=== PATIENT | male | born 1935 | race Caucasian/White ===

== ENCOUNTER 2018-02-16 15:46 | Inpatient (IN) ==
[2018-02-16] MEDS ORDERED: Ipratropium/Albuterol Neb 3 ML IH STA (15:58)
--- NOTE | 2018-02-16 15:59 | Emergency Department Note ---
Disposition Clinical Impression: Pancreatitis Qualifiers: Chronicity: acute Pancreatitis type: biliary Acute pancreatitis complication: unspecified Qualified Code(s): K85.10 - Biliary acute pancreatitis without necrosis or infection Disposition: Admitted As Inpatient Condition: Fair Time of Disposition: 18:00 (Dr Vang) Abdominal Pain HPI - General Chief Complaint: ED Abdominal Pain Stated Complaint: abdominal pain, low 02 sat Time Seen by Provider: 02/16/18 15:52 Source: patient Mode of arrival: EMS Limitations: no limitations Nursing Notes Reviewed: Yes Vital Signs Reviewed: Yes - History of Present Illness Pt Subjective Complaint: abdominal pain Onset (ago): unknown Consistency: constant, Worsening Location: epigastric Pain Severity: moderate Quality: cramping, fullness Radiation: none Migration to: no migration Improves with: nothing Worsens with: nothing Context: history of similar episodes (According to family similar to pancreatitis episodes approximately 2 years ago.) Associated symptoms: Reports: nausea. Denies: vomiting, diarrhea, fever, chills , constipation, dysuria, hematemesis, hematochezia, melena, hematuria, anorexia Treatments prior to arrival: none - Related Data Home Medications Medication Instructions Recorded Confirmed Albuterol Sulfate [Proair Hfa] 2 puff IH Q4H PRN 07/03/16 02/16/18 Carbidopa/Levodopa 25/100 [Sinemet 2 each PO QID 07/03/16 02/16/18 25/100] Pramipexole [Mirapex] 0.5 mg PO TID 07/03/16 02/16/18 Tiotropium [Spiriva] 18 mcg IH QAM 07/03/16 02/16/18 Omeprazole [PriLOSEC] 20 mg PO DAILY 08/22/16 02/16/18 Albuterol Neb [AccuNeb] 1.25 mg IH Q4-6H PRN 02/16/18 02/16/18 Fluticasone/Vilanterol [Breo 1 each IH DAILY 02/16/18 02/16/18 Ellipta 100-25 Mcg INH] Furosemide [Lasix] 40 mg PO BID 02/16/18 02/16/18 Lisinopril 20 mg PO DAILY 02/16/18 02/16/18 Naproxen [Naprosyn] 500 mg PO BID 02/16/18 02/16/18 Allergies Allergy/AdvReac Type Severity Reaction Status Date / Time No Known Allergies Allergy Verified 02/16/18 15:48 All systems ED: reviewed and negative except as stated. Abdominal Pain PMH - Past Medical History Medical history: Reports: arthritis, cancer, COPD, GERD, hypertension, osteoporosis, other Male Surgical History: Reports: other Psychiatric history: Reports: no psych history - Social History Smoking status: Current every day smoker Alcohol use: Reports: none Drug use: Reports: none Physical Exam - General Limitations: no limitations General appearance: alert, in distress - Head Head exam: atraumatic, normocephalic, normal inspection - Eye Eye exam: Present: normal appearance, PERRL, EOMI - ENT ENT exam: normal exam, normal oropharynx, mucous membranes moist - Neck Neck exam: Present: normal inspection, full ROM, trachea midline - Respiratory Respiratory exam: Present: normal lung sounds bilaterally - Expanded Respiratory Exam Location: decreased breath sounds: Upper, Lower - Cardiovascular Cardiovascular exam: Present: regular rate, normal rhythm, normal heart sounds - Abdominal Exam Abdominal exam: Present: soft, tenderness, distention, normal bowel sounds. Absent: guarding, rebound, rigidity, mass, pulsatile mass Abdominal tenderness: Present: epigastrium - Extremities Exam Extremities exam: Present: normal inspection, full ROM, normal capillary refill , pedal edema (3+). Absent: tenderness, calf tenderness - Neurological Exam Neurological exam: Present: alert, oriented X3 - Skin Skin exam: Present: warm, dry, intact, normal color Course Vital Signs Temperature 97.9 F 02/16/18 15:49 Pulse Rate 70 02/16/18 15:49 Respiratory Rate 24 02/16/18 15:49 Blood Pressure 116/59 02/16/18 15:49 O2 Sat by Pulse Oximetry 95 02/16/18 15:49 Temperature 98.3 F 02/17/18 03:11 Pulse Rate 80 02/17/18 03:11 Respiratory Rate 18 02/17/18 03:11 Blood Pressure 93/47 02/17/18 03:11 O2 Sat by Pulse Oximetry 93 02/17/18 03:11 Oxygen Delivery Oxygen Delivery Oximizer Abdominal Pain - MDM Narrative Medical decision making narrative: Negative acute abdomen. Positive for acute pancreatitis. Patient was given Nubain for his pain with tremendous improvement. He appeared slightly somnolent and desaturated in the upper 80s. The nasal cannula oxygen was replaced with an oxygen mask and he was able to maintain his sats above 90. he was stable for transfer to the [facility]. - Differential Diagnosis Differential Diagnosis: Likely: abdominal pain non-specific, AAA, diverticulitis , gastroenteritis - Medical Records Medical records reviewed: Yes I reviewed the patient's medical records. - Lab Data Lab results reviewed: Yes I reviewed the patient's lab results. Result diagrams: 02/16/18 16:34 02/16/18 16:34 Lab Results 02/16/18 02/16/18 02/16/18 Range/Units 16:34 16:34 16:34 WBC 11.3 H (4.3-11.1) K/mcL RBC 3.69 L (4.19-5.50) M/mcL Hgb 9.7 L (12.9-16.9) g/dL Hct 31.7 L (37.5-50.1) % MCV 85.9 (83.0-100.0) fL MCH 26.3 L (28.0-33.3) pg MCHC 30.6 L (31.6-35.5) g/dL RDW 17.5 H (11.5-14.5) % Plt Count 513 H (140-400) K/mcL MPV 8.6 L (9.4-12.4) fL Immature Gran % 0.4 (0-4) % Seg Neutrophils % 85.1 % Lymphocytes % 5.8 % Monocytes % 7.6 % Eosinophils % 0.9 % Basophils % 0.2 % Neutrophils # 9.6 H (1.6-8.9) K/mcL Lymphocytes # 0.7 (0.6-4.6) K/mcL Monocytes # 0.9 (0.0-1.3) K/mcL Eosinophils # 0.1 (0.0-0.6) K/mcL Basophils # 0.0 (0.0-0.2) K/mcL Sodium 138 (136-145) mEq/L Potassium 4.9 (3.5-5.1) mEq/L Chloride 101 (98-107) mEq/L Carbon Dioxide 29 (23-29) mEq/L BUN 63 H (8-23) mg/dL Creatinine 1.91 H (0.70-1.30) mg/dL Est GFR ( Amer) 41 L (> 60) Est GFR (Non-Af Amer) 34 L (> 60) BUN/Creatinine Ratio 33 H (6-26) Glucose 149 H (70-105) mg/dL Calculated Osmolality 307 H (280-300) Lactic Acid (0.5-2.2) mmol/L Calcium 8.9 (8.6-10.3) mg/dL Total Bilirubin 0.8 (0.3-1.0) mg/dL Direct Bilirubin 0.6 H (0.0-0.2) mg/dL Indirect Bilirubin 0.2 (0.0-1.2) mg/dL AST 54 H (13-39) Units/L ALT 8 (7-52) Units/L Alkaline Phosphatase 164 H (34-104) Units/L B-Natriuretic Peptide 70 (Less than 100) pg/mL Serum Total Protein 6.8 (6.4-8.9) g/dL Albumin 3.7 (3.5-5.7) g/dL Globulin 3.1 (2.4-3.5) g/dL Albumin/Globulin Ratio 1.2 (1.1-2.2) Lipase > 1800 H (11-82) Units/L /30/18 Range/Units 16:34 WBC (4.3-11.1) K/mcL RBC (4.19-5.50) M/mcL Hgb (12.9-16.9) g/dL Hct (37.5-50.1) % MCV (83.0-100.0) fL MCH (28.0-33.3) pg MCHC (31.6-35.5) g/dL RDW (11.5-14.5) % Plt Count (140-400) K/mcL MPV (9.4-12.4) fL Immature Gran % (0-4) % Seg Neutrophils % % Lymphocytes % % Monocytes % % Eosinophils % % Basophils % % Neutrophils # (1.6-8.9) K/mcL Lymphocytes # (0.6-4.6) K/mcL Monocytes # (0.0-1.3) K/mcL Eosinophils # (0.0-0.6) K/mcL Basophils # (0.0-0.2) K/mcL Sodium (136-145) mEq/L Potassium (3.5-5.1) mEq/L Chloride (98-107) mEq/L Carbon Dioxide (23-29) mEq/L BUN (8-23) mg/dL Creatinine (0.70-1.30) mg/dL Est GFR ( Amer) (> 60) Est GFR (Non-Af Amer) (> 60) BUN/Creatinine Ratio (6-26) Glucose (70-105) mg/dL Calculated Osmolality (280-300) Lactic Acid 1.4 (0.5-2.2) mmol/L Calcium (8.6-10.3) mg/dL Total Bilirubin (0.3-1.0) mg/dL Direct Bilirubin (0.0-0.2) mg/dL Indirect Bilirubin (0.0-1.2) mg/dL AST (13-39) Units/L ALT (7-52) Units/L Alkaline Phosphatase (34-104) Units/L B-Natriuretic Peptide (Less than 100) pg/mL Serum Total Protein (6.4-8.9) g/dL Albumin (3.5-5.7) g/dL Globulin (2.4-3.5) g/dL Albumin/Globulin Ratio (1.1-2.2) Lipase (11-82) Units/L - Radiology Data Radiology results reviewed: Yes I reviewed the patient's radiology results. Abdomen/Pelvis CT 02/16/18 17:19 IMPRESSION: Limited noncontrast study as above. There is questionable increased density within the peripancreatic mesenteric fat, finding which may be at least partially due to motion artifact. Correlation for the possibility of pancreatitis is recommended. Enlarged prostate gland. D/ / Areli Ceja Cha, MD / Areli Ceja Cha, MD Interpreting Provider: Areli Ceja Cha, MD
[2018-02-16 16:43] LABS: Basophils % 0.2 %; Eosinophils # 0.1 K/mcL (0.0-0.6); Eosinophils % 0.9 %; Hematocrit 31.7 % (37.5-50.1); Hemoglobin 9.7 g/dL (12.9-16.9); Immature Granulocytes % 0.4 % (0-4); Lymphocytes # 0.7 K/mcL (0.6-4.6); Lymphocytes % 5.8 %; Mean Corpuscular HGB Conc 30.6 g/dL (31.6-35.5); Mean Corpuscular Hemoglobin 26.3 pg (28.0-33.3); Mean Corpuscular Volume 85.9 fL (83.0-100.0); Mean Platelet Volume 8.6 fL (9.4-12.4); Monocytes # 0.9 K/mcL (0.0-1.3); Monocytes % 7.6 %; Neutrophils # 9.6 K/mcL (1.6-8.9); Platelet Count 513 K/mcL (140-400); Red Blood Count 3.69 M/mcL (4.19-5.50); Red Cell Distribution Width 17.5 % (11.5-14.5); Segmented Neutrophils % 85.1 %
[2018-02-16] MEDS ORDERED: Ondansetron 4 MG/2 ML VIAL IVP ONE (17:09)
[2018-02-16 17:17] LABS: Alanine Aminotransferase 8 Units/L (7-52); Albumin 3.7 g/dL (3.5-5.7); Albumin/Globulin Ratio 1.2 (1.1-2.2); Alkaline Phosphatase 164 Units/L (34-104); Aspartate Amino Transferase 54 Units/L (13-39); BUN/Creatinine Ratio 33 (6-26); Bilirubin,Direct 0.6 mg/dL (0.0-0.2); Bilirubin,Indirect 0.2 mg/dL (0.0-1.2); Bilirubin,Total 0.8 mg/dL (0.3-1.0); Blood Urea Nitrogen 63 mg/dL (8-23); Calcium 8.9 mg/dL (8.6-10.3); Carbon Dioxide 29 mEq/L (23-29); Chloride 101 mEq/L (98-107); Globulin 3.1 g/dL (2.4-3.5); Glucose 149 mg/dL (70-105); Lipase > 1800 Units/L (11-82); Osmolality,Calculated 307 (280-300); Potassium 4.9 mEq/L (3.5-5.1); Sodium 138 mEq/L (136-145); Total Protein 6.8 g/dL (6.4-8.9); eGFR For African Americans 41 (> 60); eGFR For Non-African Americans 34 (> 60)
[2018-02-16] MEDS ORDERED: *HR* Nalbuphine 10 MG/ML AMPUL IVP STA (17:19)
[2018-02-16] MEDS ORDERED: 0.9 % Sodium Chloride 500 ML IVC ONE (18:10)
[2018-02-16] MEDS ORDERED: Metoclopramide 10 MG/2 ML VIAL IVP PRN (20:01)
[2018-02-16] MEDS ORDERED: Naloxone 0.4 MG/ML INJ IVP PRN (20:01)
[2018-02-16] MEDS ORDERED: Albuterol Neb 1.25 MG/3 ML VIAL IH PRN (20:01)
[2018-02-16] MEDS ORDERED: *HR* Nalbuphine 10 MG/ML AMPUL IVP PRN (20:01)
[2018-02-16] MEDS ORDERED: *HR* OxyCODONE Oral Soln 5 MG/5 ML UD.LIQ PO PRN (20:01)
[2018-02-16] MEDS: 0.9 % Sodium Chloride 1,000 ML IVC SCH (21:08)
[2018-02-16] MEDS: Furosemide 40 MG TABLET PO SCH (23:19)
[2018-02-16] MEDS: Carbidopa/Levodopa 25/100 TABLET PO SCH ×2 (23:19→23:51)
[2018-02-17 07:39] LABS: Hematocrit 28.6 % (37.5-50.1); Hemoglobin 8.8 g/dL (12.9-16.9); Mean Corpuscular HGB Conc 30.8 g/dL (31.6-35.5); Mean Corpuscular Hemoglobin 26.3 pg (28.0-33.3); Mean Corpuscular Volume 85.4 fL (83.0-100.0); Mean Platelet Volume 8.4 fL (9.4-12.4); Platelet Count 426 K/mcL (140-400); Red Blood Count 3.35 M/mcL (4.19-5.50); Red Cell Distribution Width 17.6 % (11.5-14.5)
[2018-02-17 08:16] LABS: Calcium 8.4 mg/dL (8.6-10.3); Chol/HDL Ratio 2.3 (0-4.9); Potassium 5.3 mEq/L (3.5-5.1)
[2018-02-17] MEDS: Tiotropium 18 MCG inhalation IH SCH (09:28)
[2018-02-17] MEDS: Lisinopril 20 MG TABLET PO SCH (09:34)
[2018-02-17] MEDS: Furosemide 40 MG TABLET PO SCH (09:34)
[2018-02-17] MEDS: Carbidopa/Levodopa 25/100 TABLET PO SCH ×4 (09:51→19:55)
[2018-02-17] MEDS: 0.9 % Sodium Chloride 1,000 ML IVC SCH ×2 (09:51→14:34)
[2018-02-17] MEDS ORDERED: 0.9 % Sodium Chloride 500 ML IVC ONE (10:04)
[2018-02-17] MEDS: (Breo Ellipta 100-25 Mcg Inh) IH SCH (10:36)
[2018-02-17 13:35] LABS: Basophils % 0.2 %; Eosinophils % 0.1 %; Hematocrit 28.8 % (37.5-50.1); Hemoglobin 8.9 g/dL (12.9-16.9); Immature Granulocytes % 0.5 % (0-4); Lymphocytes # 0.8 K/mcL (0.6-4.6); Lymphocytes % 4.4 %; Mean Corpuscular HGB Conc 30.9 g/dL (31.6-35.5); Mean Corpuscular Hemoglobin 26.6 pg (28.0-33.3); Mean Platelet Volume 8.9 fL (9.4-12.4); Monocytes % 5.6 %; Neutrophils # 15.5 K/mcL (1.6-8.9); Platelet Count 459 K/mcL (140-400); Red Blood Count 3.35 M/mcL (4.19-5.50); Red Cell Distribution Width 17.8 % (11.5-14.5); Segmented Neutrophils % 89.2 %
--- NOTE | 2018-02-17 14:51 | Internal Med History&Physical ---
Date of Encounter: 02/17/18 Time of Encounter: 14:40 Assessment and Plan (1) Pancreatitis Current visit: Yes Status: Acute Lipase extremely high started coming down with IV fluids and nothing by mouth. We will continue IV fluids, will follow-up lipase Qualifiers: Chronicity: acute Pancreatitis type: biliary Acute pancreatitis complication: unspecified Qualified Code(s): K85.10 - Biliary acute pancreatitis without necrosis or infection (2) Leukocytosis Current visit: Yes Status: Acute Concerned that there is underlying pneumonia going on he at least, concerned something more seriously is going on in his abdominal area and notes not tender anymore. We will get blood cultures and empirically start him on Flagyl and Cipro that should cover both the pneumonia and ascending cholangitis I discussed this with the pharmacist. Imipenum is not available and we are catching early Qualifiers: Leukocytosis type: bandemia Qualified Code(s): D72.825 - Bandemia (3) Hypotension Current visit: Yes Status: Acute Probably the Lasix Component is using for his congestive heart failure. Thought find a balance between taking off too much fluids and taking off enough so he can breathe, as his a systolic blood pressure stays consistently above 80 we will decrease IV fluids to 80 mL an hour and monitor Qualifiers: Hypotension type: unspecified hypotension type Qualified Code(s): I95.9 - Hypotension, unspecified (4) Acute kidney injury Current visit: Yes Status: Acute IV fluids and stop the Lasix (5) Azotemia Current visit: Yes Status: Acute IV fluids, follow-up labs (6) Thrombocytosis Current visit: Yes Status: Acute We will observe follow-up a CBC (7) Severe anemia Current visit: Yes Status: Acute Follow-up CBCs probably has chronic disease component may be chronic kidney disease. It did drop a little with hydration. (8) Congestive heart failure Current visit: Yes Status: Acute Patient's family did not know what kind of congestive heart failure had. Had to stop the Lasix because she was severely dehydrated. Will follow-up BNP and chest x-ray tomorrow Qualifiers: Heart failure type: unspecified Heart failure chronicity: unspecified Qualified Code(s): I50.9 - Heart failure, unspecified (9) Other injury of muscle(s) and tendon(s) of the rotator cuff of right shoulder, initial encounter Current visit: Yes Status: Acute Injuries right rotator cuff muscles he will continue rehabilitation when he gets discharged (10) Cholelithiasis Current visit: Yes Status: Acute He has a history of stones and prior passed a stone that at least temporarily caused backflush in the pancreas Qualifiers: Cholelithiasis location: gallbladder Cholecystitis presence: without cholecystitis Biliary obstruction: without biliary obstruction Qualified Code(s): K80.20 - Calculus of gallbladder without cholecystitis without obstruction (11) Bronchitis Current visit: Yes Status: Acute Once he started getting hydrated he started coughing up phlegm, obtain culture Internal Medicine - H&P: HPI Chief complaint: Abdominal pain Admitted From: Home Plans for Post Hospital Care: Home History of present illness: Mr. Horn is a 82 year old male presents to emergency room with lower abdominal pain that started yesterday. He is a little confused on his history but his and son with her to help. He apparently been worsening shortness of breath over last few days he had some chills says he had a fever he was weak and fatigued and then complaining of headache and dizziness. Currently he has a history of congestive heart failure he is initially put on Lasix 40 mg daily still had swelling in his legs slowly increased it to 40 mg twice a day. He is worn compression stockings in the past. Explained a fine balance between taking enough water SO he can breathe but not taking too much off where he has kidney problems and dehydration. His CT scan showed increased density in the leonor-pancreatic fat consistent with pancreatitis and large prostate. Alkaline phosphatase high at 164 AST height 54 lactic acid normal at 1.4 lipase greater than 1800. White count 11.3 hemoglobin 9.76 platelets 513 neutrophils 9.6 which time, B and 63, creatinine 1.91, and certainly his questions. Addressed her concerns. He denied having any chest pain nausea. Vomiting. Diarrhea pump. Bleeding. Questions answered concerns addressed. Discussed with his nurse because he was hypotensive him a couple boluses of fluid, the patient mentioned that he did not have congestive heart failure. However his and son says he does have a history of congestive heart failure. He has a appointment with a kidney doctor coming up near future because her senior integration architect was concerned about Lasix being so high. He is thirsty so he does drink water based not sure how much. With the information given by his with him having fevers and chills I am concerned that he might have an underlying infection with his leukocytosis. We will obtain blood cultures 2 and empirically start him on Cipro and Flagyl that will cover pancreatic sources and pneumonia sources. He is coughing up sputum we will get sputum culture. I think because his dehydration status he is hiding pneumonia in his lungs. Follow-up x-ray and labs. His lipase did come down to's 565 when it was repeated but his white count went up to 17.3 with neutrophils of 15.5. Right rotator rotator cuff injury after fall couple about 6 weeks ago and he is in rehabilitation. With his pancreatitis explained how dehydration can make him more likely have another gallstone attack needs to another pancreatitis. 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) - Social History Smoking Status: Former smoker (About 37-bvhw-wdbb history 08/06) Smokeless Tobacco Status: No Alcohol use: none Drug use: none, other (He is caffeine about one cup a day, recommend he gives it up see if he starts waking up more refreshed in 4 weeks) - Family History Mother Adopted: No Family Member Ethnicity: Non- Living Status: (Pancreatic cancer) Hx Family Cardiac Disorders: No Hx Family Respiratory Disorders: No Hx Family Cancer: No Hx Family GI Disorders: No Hx Family Endocrine Disorder: Yes (pancreatic cancer) Hx Family Neuromuscular Disorders: No Hx Family Neurologic Disorders: No Hx Family HEENT Disorders: No Hx Family Autoimmune Disorders: No Father Living Status: (Abdominal hemorrhage) Internal Medicine - H&P: Meds Albuterol Sulfate [Proair Hfa] 2 puff IH Q4H PRN 07/03/16 [History] Carbidopa/Levodopa 25/100 [Sinemet 25/100] 2 each PO QID 07/03/16 [History] Pramipexole [Mirapex] 0.5 mg PO TID 07/03/16 [History] Tiotropium [Spiriva] 18 mcg IH QAM 07/03/16 [History] Omeprazole [PriLOSEC] 20 mg PO DAILY 08/22/16 [History] Albuterol Neb [AccuNeb] 1.25 mg IH Q4-6H PRN 02/16/18 [History] Fluticasone/Vilanterol [Breo Ellipta 100-25 Mcg INH] 1 each IH DAILY 02/16/18 [ History] Furosemide [Lasix] 40 mg PO BID 02/16/18 [History] Lisinopril 20 mg PO DAILY 02/16/18 [History] Naproxen [Naprosyn] 500 mg PO BID 02/16/18 [History] 3 Allergy/AdvReac Type Severity Reaction Status Date / Time No Known Allergies Allergy Verified 02/16/18 15:48 All Systems PM: A 10-system review of systems was performed and is negative for pertinent findings except as documented above in the HPI. - Constitutional Vitals: Temp Pulse Resp BP Pulse Ox 98.8 F 69 20 97/49 92 02/17/18 10:38 02/17/18 14:23 02/17/18 10:38 02/17/18 14:23 02/17/18 10:38 General appearance: Present: mild distress - Head Head exam: Present: atraumatic, normocephalic - Eye Eye exam: Present: PERRL, conjuntiva pink, sclera anicteric Pupils: Present: PERRL - ENT ENT exam: Present: mucous membranes dry - Neck Neck exam general surgery: Present: supple, trachea midline. Absent: lymphadenopathy - Respiratory Respiratory exam: Present: CTAB (Except anterior congestion with cough). Absent : accessory muscle use, rales (No crackles in the bases), rhonchi, wheezes - Cardiovascular Cardiovascular exam: Present: RRR, +S1, +S2. Absent: diastolic murmur, gallop, rubs, systolic murmur - GI/Abdominal GI/Abdominal exam: Present: normal bowel sounds, soft, no peritoneal signs. Absent: distended, tenderness - Extremities Exam Extremities exam: Present: warm. Absent: cyanotic, pedal edema Additional comments: Right great rotator cuff tenderness anteriorly - Neurological Exam Neurological exam: Present: CN II-XII intact, oriented X3, no focal deficits ( Except poor historian). Absent: facial droop, speech deficit - Skin Skin exam: Present: dry, intact Internal Med - H&P Results - Labs CBC & Chem 7: 02/17/18 07:22 02/17/18 07:22 Labs: Short CBC 02/17/18 02/17/18 Range/Units 07:15 07:22 WBC 17.4 H D 17.3 H (4.3-11.1) K/mcL Hgb 8.9 L 8.8 L (12.9-16.9) g/dL Hct 28.8 L 28.6 L (37.5-50.1) % Plt Count 459 H 426 H (140-400) K/mcL Neutrophils # 15.5 H (1.6-8.9) K/mcL BMP 02/17/18 07:22 Sodium 140 Potassium 5.3 H Chloride 106 Carbon Dioxide 29 BUN 58 H Creatinine 1.94 H Glucose 81 Calcium 8.4 L
[2018-02-17] MEDS: MetroNIDAZOLE 500 MG/100 ML 500 MG/100 ML BAG IVPB SCH ×2 (15:16→22:18)
[2018-02-17] MEDS: Ipratropium/Albuterol Neb 3 ML IH SCH ×3 (16:25→22:27)
[2018-02-17] MEDS ORDERED: Ipratropium/Albuterol Neb 3 ML ONE (17:04)
[2018-02-18] MEDS: 0.9 % Sodium Chloride 1,000 ML IVC SCH (04:40)
[2018-02-18] MEDS: Ipratropium/Albuterol Neb 3 ML IH SCH ×2 (04:59→09:08)
[2018-02-18] MEDS: MetroNIDAZOLE 500 MG/100 ML 500 MG/100 ML BAG IVPB SCH ×3 (05:44→23:13)
[2018-02-18 07:23] LABS: Basophils % 0.1 %; Hematocrit 26.6 % (37.5-50.1); Lymphocytes # 0.5 K/mcL (0.6-4.6); Lymphocytes % 3.3 %; Mean Corpuscular HGB Conc 30.1 g/dL (31.6-35.5); Mean Corpuscular Volume 86.4 fL (83.0-100.0); Mean Platelet Volume 8.7 fL (9.4-12.4); Monocytes % 6.8 %; Neutrophils # 12.7 K/mcL (1.6-8.9); Platelet Count 401 K/mcL (140-400); Red Blood Count 3.08 M/mcL (4.19-5.50); Red Cell Distribution Width 17.9 % (11.5-14.5); Segmented Neutrophils % 87.8 %
[2018-02-18 07:26] LABS: Eosinophils # 0.2 K/mcL (0.0-0.6)
[2018-02-18] MEDS: Carbidopa/Levodopa 25/100 TABLET PO SCH ×4 (07:48→20:25)
[2018-02-18] MEDS: Lisinopril 20 MG TABLET PO SCH ×2 (07:48→07:50)
[2018-02-18 07:49] LABS: Calcium 8.2 mg/dL (8.6-10.3); Potassium 4.3 mEq/L (3.5-5.1)
[2018-02-18] MEDS: Albuterol 2.5 MG/3 ML NEBULIZER IH PRN (09:04)
[2018-02-18] MEDS: Tiotropium 18 MCG inhalation IH SCH (09:07)
[2018-02-18] MEDS: (Breo Ellipta 100-25 Mcg Inh) IH SCH (09:20)
--- NOTE | 2018-02-18 12:16 | Internal Med Progress Note ---
Date of Encounter: 02/18/18 Time of Encounter: 11:55 - Assessment and plan (1) Pancreatitis Current Visit: Yes Status: Acute Assessment and plan: February 18. Lipase now near normal. Will resume normal diet. Qualifiers: Chronicity: acute Pancreatitis type: biliary Acute pancreatitis complication: unspecified Qualified Code(s): K85.10 - Biliary acute pancreatitis without necrosis or infection (2) Diastolic heart failure Current Visit: Yes Status: Chronic Assessment and plan: Will hold Lasix and lisinopril because of azotemia. Will start isosorbide. Qualifiers: Heart failure chronicity: chronic Qualified Code(s): I50.32 - Chronic diastolic (congestive) heart failure (3) Parkinsons disease Current Visit: No Status: Chronic Assessment and plan: February 18. Continue Sinemet (4) Hypertension Current Visit: No Status: Chronic Assessment and plan: February 18. Will hold lisinopril and Lasix secondary to hypotension. We will start isosorbide for heart failure. Qualifiers: Hypertension type: essential hypertension Qualified Code(s): I10 - Essential (primary) hypertension (5) Acute kidney injury Current Visit: Yes Status: Acute Assessment and plan: February 18. Suspect multifactorial etiology including naproxen use, diuretics, and dehydration. Will continue IV fluids. (6) Azotemia Current Visit: Yes Status: Acute (7) Severe anemia Current Visit: Yes Status: Acute Assessment and plan: February 18. We will order anemia testing in a.m. and continue to monitor CBCs. (8) Leukocytosis Current Visit: Yes Status: Acute Assessment and plan: February 18. Slightly improved today. Exam today raises possibility of pneumonia. Will continue with Cipro and Flagyl. Add lactobacillus and monitor labs. Qualifiers: Leukocytosis type: bandemia Qualified Code(s): D72.825 - Bandemia - Subjective Interval history: February 18. He has no new complaints and states he has had no further vomiting. He reports his abdominal pain has resolved. - Constitutional Vitals: Temp Pulse Resp BP Pulse Ox 98.2 F 81 17 133/77 93 02/18/18 06:40 02/18/18 09:25 02/18/18 09:10 02/18/18 09:25 02/18/18 09:10 General appearance: Present: mild distress Exam: He is resting comfortably in bed and appears in no acute distress. Oxygen saturation is 86% on room air. I reapplied his nasal cannula. Heart is regular without murmurs gallops or ectopics. Lungs show scattered rhonchi and bilateral egophony especially in the upper lobes. Extremities show no edema. Abdomen has bowel sounds present and is nontender to palpation. I reviewed his medications and lab results. Internal Medicine: Result - Labs CBC & Chem 7: 02/18/18 06:35 02/18/18 06:35 Labs: Short CBC 02/17/18 02/17/18 02/18/18 Range/Units 07:15 07:22 06:35 WBC 17.4 H D 17.3 H 14.5 H (4.3-11.1) K/mcL Hgb 8.9 L 8.8 L 8.0 L (12.9-16.9) g/dL Hct 28.8 L 28.6 L 26.6 L (37.5-50.1) % Plt Count 459 H 426 H 401 H (140-400) K/mcL Neutrophils # 15.5 H 12.7 H (1.6-8.9) K/mcL BMP 02/18/18 06:35 Sodium 143 Potassium 4.3 Chloride 109 H Carbon Dioxide 26 BUN 47 H Creatinine 1.61 H Glucose 80 Calcium 8.2 L - Impressions Impressions Chest X-Ray 02/18/18 06:00 IMPRESSION: No acute abnormality. D/ / 02/18/2018 08:17:07 Dhrvu Brunson MD / syed Interpreting Provider: Dhruv Brunson MD Consult Discharge Plan - Plan Referrals: Nell Calvin CNP [Primary Care Provider] - 1 week
[2018-02-18] MEDS: Isosorbide MONOnitrate (24 HR) 30 MG TAB.ER.24H PO SCH (13:19)
[2018-02-18] MEDS: Lactobacillus 1 EACH CAP.SPRINK PO SCH (20:25)
[2018-02-19] MEDS: *HR* Enoxaparin 40 MG/0.4 ML SYRINGE SQ SCH (06:07)
[2018-02-19 07:05] LABS: Basophils % 0.2 %; Eosinophils # 0.5 K/mcL (0.0-0.6); Eosinophils % 3.7 %; Hematocrit 28.5 % (37.5-50.1); Hemoglobin 8.4 g/dL (12.9-16.9); Immature Granulocytes % 0.8 % (0-4); Lymphocytes # 0.8 K/mcL (0.6-4.6); Mean Corpuscular HGB Conc 29.5 g/dL (31.6-35.5); Mean Corpuscular Hemoglobin 25.8 pg (28.0-33.3); Mean Corpuscular Volume 87.7 fL (83.0-100.0); Mean Platelet Volume 8.7 fL (9.4-12.4); Monocytes # 0.9 K/mcL (0.0-1.3); Monocytes % 6.5 %; Platelet Count 427 K/mcL (140-400); Red Blood Count 3.25 M/mcL (4.19-5.50); Red Cell Distribution Width 17.8 % (11.5-14.5); Segmented Neutrophils % 82.8 %
[2018-02-19 07:33] LABS: BUN/Creatinine Ratio 21 (6-26); Blood Urea Nitrogen 26 mg/dL (8-23); Calcium 8.6 mg/dL (8.6-10.3); Carbon Dioxide 26 mEq/L (23-29); Chloride 106 mEq/L (98-107); Glucose 85 mg/dL (70-105); Magnesium 1.9 mg/dL (1.6-2.6); Osmolality,Calculated 290 (280-300); Potassium 4.6 mEq/L (3.5-5.1); Sodium 138 mEq/L (136-145); eGFR For African Americans > 60 (> 60); eGFR For Non-African Americans 58 (> 60)
[2018-02-19] MEDS: MetroNIDAZOLE 500 MG/100 ML 500 MG/100 ML BAG IVPB SCH ×3 (08:33→23:55)
[2018-02-19] MEDS: Lactobacillus 1 EACH CAP.SPRINK PO SCH ×2 (08:34→20:53)
[2018-02-19] MEDS: Isosorbide MONOnitrate (24 HR) 30 MG TAB.ER.24H PO SCH (08:34)
[2018-02-19] MEDS: Carbidopa/Levodopa 25/100 TABLET PO SCH ×4 (08:34→20:53)
[2018-02-19] MEDS: (Breo Ellipta 100-25 Mcg Inh) IH SCH (08:59)
[2018-02-19] MEDS: Albuterol 2.5 MG/3 ML NEBULIZER IH PRN ×3 (09:05→17:28)
[2018-02-19] MEDS: Tiotropium 18 MCG inhalation IH SCH (09:07)
[2018-02-19 09:50] LABS: Folate 13.8 ng/mL (3.0-16.0)
[2018-02-19 09:52] LABS: Ferritin 72 ng/ml (20-250); Iron < 10 mcg/dL (65-175); Transferrin 252 mg/dL (203-362)
--- NOTE | 2018-02-19 10:44 | Internal Med Progress Note ---
Date of Encounter: 02/19/18 Time of Encounter: 10:25 - Assessment and plan (1) Pancreatitis Current Visit: Yes Status: Acute Assessment and plan: February 18. Lipase now near normal. Will resume normal diet. Qualifiers: Chronicity: acute Pancreatitis type: biliary Acute pancreatitis complication: unspecified Qualified Code(s): K85.10 - Biliary acute pancreatitis without necrosis or infection (2) Diastolic heart failure Current Visit: Yes Status: Chronic Assessment and plan: February 18. Will hold Lasix and lisinopril because of azotemia. Will start isosorbide. Gladys 2. Clinically improved with BNP 219. Continue isosorbide and remain off lisinopril and Lasix Qualifiers: Heart failure chronicity: chronic Qualified Code(s): I50.32 - Chronic diastolic (congestive) heart failure (3) Parkinsons disease Current Visit: No Status: Chronic Assessment and plan: February 18. Continue Sinemet (4) Hypertension Current Visit: No Status: Chronic Assessment and plan: February 18. Will hold lisinopril and Lasix secondary to hypotension. We will start isosorbide for heart failure. Qualifiers: Hypertension type: essential hypertension Qualified Code(s): I10 - Essential (primary) hypertension (5) Acute kidney injury Current Visit: Yes Status: Acute Assessment and plan: February 18. Suspect multifactorial etiology including naproxen use, diuretics, and dehydration. Will continue IV fluids. Gladys 2. Significantly improved. Continue present regimen and monitor renal indices. (6) Severe anemia Current Visit: Yes Status: Acute Assessment and plan: February 18. We will order anemia testing in a.m. and continue to monitor CBCs. Gladys 2. Anemia testing showed iron less than 10, transferrin 252, ferritin 72 , B12 559, and folate 13.8. We will give IV iron dextran. Anticipate discharge home tomorrow if stable. (7) Leukocytosis Current Visit: Yes Status: Acute Assessment and plan: February 18. Slightly improved today. Exam today raises possibility of pneumonia. Will continue with Cipro and Flagyl. Add lactobacillus and monitor labs. February 2. Continue Cipro and Flagyl with lactobacillus. Anticipate discharge home tomorrow if stable. Qualifiers: Leukocytosis type: bandemia Qualified Code(s): D72.825 - Bandemia - Subjective Interval history: February 18. He has no new complaints and states he has had no further vomiting. He reports his abdominal pain has resolved. February 19. He has no new complaints and feels better. - Constitutional Vitals: Temp Pulse Resp BP Pulse Ox 98.5 F 75 15 116/56 98 02/19/18 05:33 02/19/18 05:33 02/19/18 09:08 02/19/18 05:33 02/19/18 09:08 General appearance: Present: mild distress Exam: He is resting comfortably in bed. His affect is bright and cheerful. His oxygen saturation is 94% on bedside monitor. I reviewed his medications and lab results. Internal Medicine: Result - Labs CBC & Chem 7: 02/19/18 06:30 02/19/18 06:30 Labs: Short CBC 02/19/18 Range/Units 06:30 WBC 13.3 H (4.3-11.1) K/mcL Hgb 8.4 L (12.9-16.9) g/dL Hct 28.5 L (37.5-50.1) % Plt Count 427 H (140-400) K/mcL Neutrophils # 11.0 H (1.6-8.9) K/mcL BMP 02/19/18 06:30 Sodium 138 Potassium 4.6 Chloride 106 Carbon Dioxide 26 BUN 26 H Creatinine 1.21 Glucose 85 Calcium 8.6 Consult Discharge Plan - Plan Referrals: Nell Calvin, [facility] [Primary Care Provider] - 1 week
--- NOTE | 2018-02-19 12:22 | Electrocardiograph Report ---
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
[2018-02-19] MEDS ORDERED: SODIUM CHLORIDE 0.9% IVPB ONE (12:30)
[2018-02-19] MEDS ORDERED: IRON DEXTRAN COMPLEX IVPB ONE (12:30)
[2018-02-20 02:13] LABS: Bilirubin,Urine Negative (Negative); Blood,Urine Negative (Negative); Clarity,Urine Clear (Clear); Color,Urine Yellow (Yellow); Glucose,Urine (UA) Normal (Normal); Ketones,Urine Negative (Negative); Leukocyte Esterase,Urine Negative (Negative); Nitrite,Urine Negative (Negative); PH,Urine 5.5 pH Units (5.0-8.0); Protein,Urine 30 mg/dL (Neg-Trace); Urobilinogen,Urine Normal (Normal)
[2018-02-20 02:18] LABS: Mucus,Urine Few (Few); RBC,Urine 0-3 per hpf (0-3); Squamous Epithelial Cell,Urine Few per lpf (None-Few); WBC,Urine 0-3 per hpf (0-3)
[2018-02-20 02:19] LABS: Bacteria,Urine Few per hpf (None-Few)
[2018-02-20] MEDS: *HR* Enoxaparin 40 MG/0.4 ML SYRINGE SQ SCH (06:09)
[2018-02-20 07:23] VITALS: BP 124/68
[2018-02-20] MEDS: Lactobacillus 1 EACH CAP.SPRINK PO SCH (09:24)
[2018-02-20] MEDS: Isosorbide MONOnitrate (24 HR) 30 MG TAB.ER.24H PO SCH (09:24)
[2018-02-20] MEDS: Carbidopa/Levodopa 25/100 TABLET PO SCH (09:25)
[2018-02-20] MEDS: MetroNIDAZOLE 500 MG/100 ML 500 MG/100 ML BAG IVPB SCH (09:25)
[2018-02-20] MEDS: (Breo Ellipta 100-25 Mcg Inh) IH SCH (09:26)
[2018-02-20] MEDS ORDERED: Tiotropium 18 MCG inhalation IH SCH (10:00)
--- NOTE | 2018-02-20 10:03 | Discharge Summary ---
Date of Encounter: 02/20/18 Time of Encounter: 09:50 - Discharge Diagnosis (1) Pancreatitis Priority: Primary Status: Resolved Qualifiers: Chronicity: acute Pancreatitis type: biliary Acute pancreatitis complication: unspecified Qualified Code(s): K85.10 - Biliary acute pancreatitis without necrosis or infection (2) Diastolic heart failure Priority: Secondary Status: Chronic Qualifiers: Heart failure chronicity: chronic Qualified Code(s): I50.32 - Chronic diastolic (congestive) heart failure (3) Parkinsons disease Priority: Secondary Status: Chronic (4) Hypertension Priority: Secondary Status: Chronic Qualifiers: Hypertension type: essential hypertension Qualified Code(s): I10 - Essential (primary) hypertension (5) Acute kidney injury Priority: Secondary Status: Acute (6) Severe anemia Priority: Secondary Status: Acute (7) Leukocytosis Priority: Secondary Status: Acute Qualifiers: Leukocytosis type: bandemia Qualified Code(s): D72.825 - Bandemia Hospital course: Mr. Horn is a 82 year old male who came to emergency room because of abdominal pain. Evaluation showed likely acute pancreatitis. Initial orders were written by the emergency room physician. Dr. Vang saw him on February 17 and performed a history and physical. He received IV fluids and analgesics as needed. Diet was advanced as tolerated. He was pain-free and tolerating adequate amounts of food and fluids by the day of discharge. He was given Cipro and Flagyl IV for leukocytosis with left shift. His WBC was 13.3 on the day prior to discharge. He will not continue with further antibiotics at discharge since he is asymptomatic. Anemia testing showed iron < 10, transferrin 252, ferritin 72, B12 559, and folate 13.8. He received IV iron dextran which was tolerated well. Naprosyn will be discontinued. He will use OTC Tylenol for pain control. Lasix and lisinopril were held along with Naprosyn. His azotemia significantly improved with BUN and creatinine decreasing from 69 and 1.91 respectively on admission to 26 and 1.21 respectively on day prior to discharge. He will remain off these medications at discharge. Blood pressure remained satisfactory. Isosorbide was started for elevation of BN peptide. He will remain on this at discharge. On February 20 he felt stable for discharge home. He will follow with his PCP Nell Calvin CNP within 1 week. - Time Spent with Patient Total time spent providing and/or coordinating discharge services: - Discharge Medications Prescriptions: Isosorbide MONOnitrate (24 HR) [Imdur] 30 mg PO DAILY #30 tab.er.24h Home Medications: Albuterol Sulfate [Proair Hfa] 2 puff IH Q4H PRN 07/03/16 [History] Carbidopa/Levodopa 25/100 [Sinemet 25/100] 2 each PO QID 07/03/16 [History] Pramipexole [Mirapex] 0.5 mg PO TID 07/03/16 [History] Tiotropium [Spiriva] 18 mcg IH QAM 07/03/16 [History] Albuterol Neb [AccuNeb] 1.25 mg IH Q4-6H PRN 02/16/18 [History] Fluticasone/Vilanterol [Breo Ellipta 100-25 Mcg INH] 1 each IH DAILY 02/16/18 [ History] Isosorbide MONOnitrate (24 HR) [Imdur] 30 mg PO DAILY #30 tab.er.24h 02/20/18 [ Rx] Omeprazole [PriLOSEC] 20 mg PO DAILY PRN #0 02/20/18 [Rx] Allergies/Adverse Reactions: 3 Allergy/AdvReac Type Severity Reaction Status Date / Time No Known Allergies Allergy Verified 02/16/18 15:48 Date of admission: 02/18/18 12:28 Primary care physician: Nell Calvin - Constitutional Vitals: Temp Pulse Resp BP Pulse Ox 97.6 F 74 20 124/68 91 02/20/18 06:15 02/20/18 06:15 02/20/18 08:36 02/20/18 06:15 02/20/18 08:36 General appearance: Present: mild distress - Patient Status Disposition: Home, Self-Care Condition: Fair Overall status at discharge: patient is progressing back to baseline - Discharge Instructions Follow Up With: Nell Calvin, HYPERBARIC TECHNOLOGIST [Primary Care Provider] - 1 week - Diet and Activity Activity: resume usual activities as tolerated, wear oxygen at all times Diet: advance to your usual diet
--- NOTE | 2018-02-20 14:55 | Physician Discharge Referral ---
Home Health/Hosp Referral Info Transfer to: Home Health Attending Provider: Syed Provider in Charge Post Discharge: PCP (Nell Calvin CNP) - Diagnosis (1) Pancreatitis Priority: Primary Status: Resolved (2) Diastolic heart failure Priority: Secondary Status: Chronic (3) Parkinsons disease Priority: Secondary Status: Chronic (4) Hypertension Priority: Secondary Status: Chronic (5) Acute kidney injury Priority: Secondary Status: Acute (6) Severe anemia Priority: Secondary Status: Acute (7) Leukocytosis Priority: Secondary Status: Acute - Respiratory Orders Smoking Cessation: Smoking cessation has been advised. For more information, call the [place] Tobacco Quit Line at 0-173-YDEI-NOW. - Diet/Nutrition Diet/Nutrition Orders: Regular - Activity Activity Orders: Walker - Services Needed Following services are medically necessary services: Nursing, Home Health Aide, Physical Therapy, Occupational Therapy - Transfer Medications Prescriptions: Isosorbide MONOnitrate (24 HR) [Imdur] 30 mg PO DAILY #30 tab.er.24h Home Medications: Albuterol Sulfate [Proair Hfa] 2 puff IH Q4H PRN 07/03/16 [History] Carbidopa/Levodopa 25/100 [Sinemet 25/100] 2 each PO QID 07/03/16 [History] Pramipexole [Mirapex] 0.5 mg PO TID 07/03/16 [History] Tiotropium [Spiriva] 18 mcg IH QAM 07/03/16 [History] Albuterol Neb [AccuNeb] 1.25 mg IH Q4-6H PRN 02/16/18 [History] Fluticasone/Vilanterol [Breo Ellipta 100-25 Mcg INH] 1 each IH DAILY 02/16/18 [ History] Isosorbide MONOnitrate (24 HR) [Imdur] 30 mg PO DAILY #30 tab.er.24h 02/20/18 [ Rx] Omeprazole [PriLOSEC] 20 mg PO DAILY PRN #0 02/20/18 [Rx] Allergies/Adverse Reactions: 3 Allergy/AdvReac Type Severity Reaction Status Date / Time No Known Allergies Allergy Verified 02/16/18 15:48 Certification: Further, I certify that my clinical findings support that this patient is homebound (i.e. absences from home require considerable and taxing effort and are for medical reasons or jainism services or infrequently or short duration when for other reasons) because: Homebound Reason: Leaving home requires considerable and taxing effort due to condition (Dyspnea on exertion) Attestation: My signature below is to certify that this patient is under my care and that I, or nurse practitioner, or a physician's clothing sales assistant working with me, has a face-to -face encounter with this patient.
== END 2018-02-20 11:15 | disposition home or self-care (01) | DRG 438 ==
LOC: EMEROOPIK 15:46 → INPPIK 15:46
PROVIDERS: ADMIT Internal Medicine; ATTEND Internal Medicine

== ENCOUNTER 2018-06-08 06:18 | Observation (INO) ==
[2018-06-08] MEDS ORDERED: Ondansetron ODT 4 MG TAB.RAPDIS ONE ×2 (06:36→13:04)
[2018-06-08] MEDS ORDERED: Ondansetron 4 MG/2 ML VIAL ONE (11:22)
[2018-06-08] MEDS ORDERED: Ketorolac 30 MG/ML VIAL ONE (11:22)
[2018-06-08] MEDS ORDERED: 0.9 % Sodium Chloride 1,000 ML ONE (11:22)
[2018-06-08 11:40] LABS: Hematocrit 39.6 % (37.5-50.1); Hemoglobin 12.5 g/dL (12.9-16.9); Mean Corpuscular HGB Conc 31.6 g/dL (31.6-35.5); Mean Corpuscular Hemoglobin 29.8 pg (28.0-33.3); Mean Corpuscular Volume 94.5 fL (83.0-100.0); Red Blood Count 4.19 M/mcL (4.19-5.50)
[2018-06-08 11:41] LABS: BUN/Creatinine Ratio 26 (6-26); Basophils % 0.4 %; Blood Urea Nitrogen 30 mg/dL (8-23); Carbon Dioxide 36 mEq/L (23-29); Chloride 98 mEq/L (98-107); Eosinophils # 0.2 K/mcL (0.0-0.6); Eosinophils % 3.1 %; Lymphocytes % 16.9 %; Mean Platelet Volume 8.8 fL (9.4-12.4); Monocytes # 0.5 K/mcL (0.0-1.3); Monocytes % 9.3 %; Neutrophils # 3.9 K/mcL (1.6-8.9); Platelet Count 309 K/mcL (140-400); Potassium 4.5 mEq/L (3.5-5.1); Segmented Neutrophils % 69.8 %; Sodium 139 mEq/L (136-145); eGFR For African Americans > 60 (> 60); eGFR For Non-African Americans > 60 (> 60)
[2018-06-08 11:42] LABS: Alanine Aminotransferase 21 Units/L (7-52); Albumin 3.9 g/dL (3.5-5.7); Albumin/Globulin Ratio 1.3 (1.1-2.2); Alkaline Phosphatase 89 Units/L (34-104); Aspartate Amino Transferase 139 Units/L (13-39); Bilirubin,Direct 0.5 mg/dL (0.0-0.2); Bilirubin,Indirect 0.3 mg/dL (0.0-1.2); Bilirubin,Total 0.8 mg/dL (0.3-1.0); Calcium 9.2 mg/dL (8.6-10.3); Glucose 135 mg/dL (70-105); Lipase 529 Units/L (11-82); Osmolality,Calculated 296 (280-300); Total Protein 6.9 g/dL (6.4-8.9)
[2018-06-08] MEDS ORDERED: Ketorolac 30 MG/ML VIAL IVP PRN (13:04)
[2018-06-08] MEDS ORDERED: Naloxone 0.4 MG/ML INJ IVP PRN (13:04)
[2018-06-08] MEDS ORDERED: Mag Hydrox/Al Hydrox/Simeth 30 ML UDC PO PRN (13:04)
[2018-06-08] MEDS: Carbidopa/Levodopa 25/100 TABLET PO SCH ×3 (15:08→21:40)
[2018-06-08] MEDS: 0.9 % Sodium Chloride 1,000 ML IVC SCH ×2 (15:18→21:39)
[2018-06-08] MEDS ORDERED: Albuterol 2.5 MG/3 ML NEBULIZER IH PRN (18:36)
[2018-06-08] MEDS: Ondansetron 4 MG/2 ML VIAL IVP PRN (19:41)
[2018-06-08] MEDS: *HR* HYDROcodone/Acet 5/325 mg TABLET PO PRN (19:49)
[2018-06-08] MEDS: Lactobacillus 1 EACH CAP.SPRINK PO SCH (21:40)
[2018-06-09] MEDS: *HR* HYDROcodone/Acet 5/325 mg TABLET PO PRN ×2 (01:56→08:03)
[2018-06-09 05:40] LABS: Basophils % 0.2 %; Eosinophils # 0.1 K/mcL (0.0-0.6); Eosinophils % 0.9 %; Hematocrit 38.6 % (37.5-50.1); Hemoglobin 11.8 g/dL (12.9-16.9); Immature Granulocytes % 0.2 % (0-4); Lymphocytes # 0.7 K/mcL (0.6-4.6); Lymphocytes % 7.9 %; Mean Corpuscular HGB Conc 30.6 g/dL (31.6-35.5); Mean Corpuscular Hemoglobin 29.2 pg (28.0-33.3); Mean Corpuscular Volume 95.5 fL (83.0-100.0); Mean Platelet Volume 8.4 fL (9.4-12.4); Monocytes # 0.6 K/mcL (0.0-1.3); Monocytes % 7.2 %; Neutrophils # 7.1 K/mcL (1.6-8.9); Platelet Count 282 K/mcL (140-400); Red Blood Count 4.04 M/mcL (4.19-5.50); Red Cell Distribution Width 16.6 % (11.5-14.5); Segmented Neutrophils % 83.6 %
[2018-06-09] MEDS: Acetaminophen 325 MG TABLET PO PRN (05:52)
[2018-06-09] MEDS: Ondansetron 4 MG/2 ML VIAL IVP PRN (05:52)
[2018-06-09 06:14] LABS: Chol/HDL Ratio 2.6 (0-4.9); Magnesium 1.9 mg/dL (1.6-2.6)
[2018-06-09] MEDS: Furosemide 40 MG TABLET PO SCH (08:03)
[2018-06-09] MEDS: Lactobacillus 1 EACH CAP.SPRINK PO SCH ×2 (08:03→21:17)
[2018-06-09] MEDS: Carbidopa/Levodopa 25/100 TABLET PO SCH ×4 (08:03→21:17)
[2018-06-09] MEDS ORDERED: hydroCHLOROthiazide 25 MG TABLET PO SCH (09:00)
[2018-06-09] MEDS ORDERED: Lisinopril 20 MG TABLET PO SCH (09:00)
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
[2018-06-09] MEDS: Albuterol 2.5 MG/3 ML NEBULIZER IH SCH (09:27)
[2018-06-09] MEDS: Tiotropium 18 MCG inhalation IH SCH (09:27)
[2018-06-10 06:10] LABS: Basophils % 0.1 %; Hematocrit 34.8 % (37.5-50.1); Hemoglobin 10.9 g/dL (12.9-16.9); Immature Granulocytes % 0.7 % (0-4); Lymphocytes # 0.3 K/mcL (0.6-4.6); Lymphocytes % 1.8 %; Mean Corpuscular HGB Conc 31.3 g/dL (31.6-35.5); Mean Corpuscular Hemoglobin 29.3 pg (28.0-33.3); Mean Corpuscular Volume 93.5 fL (83.0-100.0); Mean Platelet Volume 9.1 fL (9.4-12.4); Monocytes # 0.6 K/mcL (0.0-1.3); Monocytes % 3.7 %; Platelet Count 258 K/mcL (140-400); Red Blood Count 3.72 M/mcL (4.19-5.50); Red Cell Distribution Width 17.1 % (11.5-14.5); Segmented Neutrophils % 93.7 %
[2018-06-10 06:29] LABS: Albumin 3.5 g/dL (3.5-5.7); Albumin/Globulin Ratio 1.3 (1.1-2.2); Calcium 8.8 mg/dL (8.6-10.3); Globulin 2.6 g/dL (2.4-3.5); Potassium 4.3 mEq/L (3.5-5.1); Total Protein 6.1 g/dL (6.4-8.9)
[2018-06-10 06:49] LABS: Neutrophils # 13.9 K/mcL (1.6-8.9)
[2018-06-10] MEDS: Carbidopa/Levodopa 25/100 TABLET PO SCH ×4 (09:52→21:21)
[2018-06-10] MEDS: Lactobacillus 1 EACH CAP.SPRINK PO SCH ×2 (09:52→21:21)
[2018-06-10] MEDS: Furosemide 40 MG TABLET PO SCH (09:52)
[2018-06-10 09:58] LABS: Folate 19.1 ng/mL (3.0-16.0)
[2018-06-10] MEDS: Tiotropium 18 MCG inhalation IH SCH (10:09)
[2018-06-10] MEDS: Albuterol 2.5 MG/3 ML NEBULIZER IH SCH (10:09)
--- NOTE | 2018-06-10 10:15 | Internal Med Progress Note ---
Date of Encounter: 06/10/18 Time of Encounter: 10:00 - Assessment and plan (1) Abdominal pain Current Visit: Yes Status: Acute Assessment and plan: June 10. Pain resolved. WBC has risen to 14.8 with increased left shift. Continue to monitor. Qualifiers: Abdominal location: right lower quadrant Qualified Code(s): R10.31 - Right lower quadrant pain (2) Anemia Current Visit: Yes Status: Acute Assessment and plan: June 10. Hemoglobin decreased to 10.9. Anemia testing showed iron 15, transferrin saturation 6%, transferrin 193, ferritin 243, B12 184, and folate 19.1. Start ferrous sulfate with vitamin C and give B12 injection followed by daily B12 oral supplement. Qualifiers: Anemia type: unspecified type Qualified Code(s): D64.9 - Anemia, unspecified (3) Parkinsons disease Current Visit: No Status: Chronic Assessment and plan: June 10. Continue Sinemet (4) Hypertension Current Visit: No Status: Chronic Assessment and plan: June 10. Hold lisinopril and HCTZ secondary to hypotension. Qualifiers: Hypertension type: essential hypertension Qualified Code(s): I10 - Essential (primary) hypertension (5) Acute kidney injury Current Visit: No Status: Acute Assessment and plan: June 10. Creatinine has risen to 1.41 with estimated GFR 48. Recheck in a.m. - Subjective Interval history: June 10. He has no new complaints and feels better. - Constitutional Vitals: Temp Pulse Resp BP Pulse Ox 99.1 F 67 20 103/51 93 06/10/18 06:37 06/10/18 06:37 06/10/18 06:37 06/10/18 06:37 06/10/18 06:37 Exam: He is resting comfortably in bed and appears in no acute distress. Abdomen shows bowel sounds present. There is no tenderness to palpation. I reviewed his medications and lab results. Internal Medicine: Result - Labs CBC & Chem 7: 06/10/18 05:20 06/10/18 05:20 Labs: Short CBC 06/10/18 Range/Units 05:20 WBC 14.8 H D (4.3-11.1) K/mcL Hgb 10.9 L (12.9-16.9) g/dL Hct 34.8 L (37.5-50.1) % Plt Count 258 (140-400) K/mcL Neutrophils # 13.9 H (1.6-8.9) K/mcL BMP 06/10/18 05:20 Sodium 135 L Potassium 4.3 Chloride 96 L Carbon Dioxide 32 H BUN 32 H Creatinine 1.41 H Glucose 89 Calcium 8.8 Liver Function 06/10/18 Range/Units 05:20 Total Bilirubin 2.0 H (0.3-1.0) mg/dL AST 55 H (13-39) Units/L ALT 14 (7-52) Units/L Alkaline Phosphatase 136 H (34-104) Units/L Albumin 3.5 (3.5-5.7) g/dL Consult Discharge Plan - Plan Referrals: Nell Calvin, BEA [Primary Care Provider] - 1 week
[2018-06-10] MEDS ORDERED: Cyanocobalamin (B-12) 1,000 MCG/ML VIAL IM ONE (10:27)
[2018-06-10] MEDS: Acetaminophen 325 MG TABLET PO PRN (11:33)
[2018-06-11] MEDS ORDERED: Ascorbic Acid 500 MG TABLET PO SCH (06:30)
[2018-06-11 06:50] VITALS: BP 89/61
[2018-06-11 07:54] LABS: Basophils % 0.1 %; Eosinophils % 0.2 %; Hemoglobin 11.8 g/dL (12.9-16.9); Immature Granulocytes % 0.9 % (0-4); Lymphocytes # 0.5 K/mcL (0.6-4.6); Lymphocytes % 5.3 %; Mean Corpuscular HGB Conc 31.9 g/dL (31.6-35.5); Mean Corpuscular Hemoglobin 29.4 pg (28.0-33.3); Mean Platelet Volume 8.6 fL (9.4-12.4); Monocytes # 0.4 K/mcL (0.0-1.3); Monocytes % 4.3 %; Neutrophils # 7.5 K/mcL (1.6-8.9); Platelet Count 244 K/mcL (140-400); Red Blood Count 4.02 M/mcL (4.19-5.50); Segmented Neutrophils % 89.2 %
[2018-06-11 08:17] LABS: Alanine Aminotransferase 20 Units/L (7-52); Albumin 3.3 g/dL (3.5-5.7); Albumin/Globulin Ratio 1.1 (1.1-2.2); Alkaline Phosphatase 141 Units/L (34-104); Aspartate Amino Transferase 44 Units/L (13-39); BUN/Creatinine Ratio 27 (6-26); Bilirubin,Total 1.2 mg/dL (0.3-1.0); Blood Urea Nitrogen 28 mg/dL (8-23); Calcium 8.7 mg/dL (8.6-10.3); Carbon Dioxide 33 mEq/L (23-29); Chloride 94 mEq/L (98-107); Globulin 2.9 g/dL (2.4-3.5); Glucose 85 mg/dL (70-105); Osmolality,Calculated 283 (280-300); Potassium 3.8 mEq/L (3.5-5.1); Sodium 134 mEq/L (136-145); Total Protein 6.2 g/dL (6.4-8.9); eGFR For African Americans > 60 (> 60); eGFR For Non-African Americans > 60 (> 60)
[2018-06-11] MEDS: Carbidopa/Levodopa 25/100 TABLET PO SCH (08:25)
[2018-06-11] MEDS: Lactobacillus 1 EACH CAP.SPRINK PO SCH (08:26)
[2018-06-11] MEDS ORDERED: Cyanocobalamin (B-12) 1,000 MCG TABLET PO SCH (09:00)
[2018-06-11] MEDS: Albuterol 2.5 MG/3 ML NEBULIZER IH SCH (09:31)
[2018-06-11] MEDS: Tiotropium 18 MCG inhalation IH SCH (09:32)
--- NOTE | 2018-06-11 10:25 | Discharge Summary ---
Orders not resulted at time of discharge: Pending orders 06/10/18 10:29 Urinalysis Reflex Cult & Micro [URIN] Routine Date of Encounter: 06/11/18 Time of Encounter: 10:14 - Discharge Diagnosis (1) Abdominal pain Priority: Primary Status: Resolved Qualifiers: Abdominal location: right lower quadrant Qualified Code(s): R10.31 - Right lower quadrant pain (2) Anemia Priority: Secondary Status: Acute Qualifiers: Anemia type: unspecified type Qualified Code(s): D64.9 - Anemia, unspecified (3) Parkinsons disease Priority: Secondary Status: Chronic (4) Hypertension Priority: Secondary Status: Chronic Qualifiers: Hypertension type: essential hypertension Qualified Code(s): I10 - Essential (primary) hypertension (5) Acute kidney injury Priority: Secondary Status: Resolved Hospital course: Mr. Horn is a 82 year old male who came to emergency room stating he had onset of abdominal discomfort in his right lower and mid abdominal area after eating lunch on June 07. He had no vomiting or diarrhea. The pain seemed to lessen over the next few hours. Upon awakening the following day he had recurrence of the pain after a few bites of breakfast. When it did not resolve he came to emergency room. He was evaluated and felt to have possible acute pancreatitis. He was [facility] floor for ongoing care needs. Initial orders were written by the emergency room physician. I saw him on June 09 and performed a history and physical. His abdominal pain resolved by time of discharge. I suspect he had acute viral enteritis. He tolerated clear liquid diet. He will advance diet as tolerated upon discharge. Anemia testing showed iron 15, transferrin saturation 6%, transferrin 193, ferritin 243, B12 184, and folate 19.1. He was started on oral ferrous sulfate with vitamin C. He received B12 injection and will start oral B12 supplement at discharge. Lisinopril/HCTZ was discontinued. Azotemia improved with BUN and creatinine decreasing to 28 and 1.03 respectively by day of discharge with estimated GFR greater than 60. He will remain off these at discharge. His blood pressure remain satisfactory. LFTs improved with AST 44 and ALT 20 by day of discharge. On June 11 he felt stable for discharge home. He will follow with his PCP Nell Calvin CNP within 1 week. - Time Spent with Patient Total time spent providing and/or coordinating discharge services: - Discharge Medications Prescriptions: Ascorbic Acid [Vitamin C] 500 mg PO DAILY #30 tablet.er Cyanocobalamin (B-12) [Vitamin B12] 1,000 mcg PO DAILY #30 tablet Ferrous Sulfate 325 mg PO DAILY #30 tablet Home Medications: Albuterol Sulfate [Proair Hfa] 2 puff IH Q4H PRN 07/03/16 [History] Carbidopa/Levodopa 25/100 [Sinemet 25/100] 2 each PO QID 07/03/16 [History] Pramipexole [Mirapex] 0.5 mg PO TID 07/03/16 [History] Tiotropium [Spiriva] 18 mcg IH QAM 07/03/16 [History] Omeprazole [PriLOSEC] 20 mg PO DAILY PRN #0 02/20/18 [Rx] Ascorbic Acid [Vitamin C] 500 mg PO DAILY #30 tablet.er 06/11/18 [Rx] Cyanocobalamin (B-12) [Vitamin B12] 1,000 mcg PO DAILY #30 tablet 06/11/18 [Rx] Ferrous Sulfate 325 mg PO DAILY #30 tablet 06/11/18 [Rx] Allergies/Adverse Reactions: 3 Allergy/AdvReac Type Severity Reaction Status Date / Time No Known Allergies Allergy Verified 02/16/18 15:48 Date of admission: 06/08/18 12:06 Primary care physician: Nell Calvin - Constitutional Vitals: Temp Pulse Resp BP Pulse Ox 99.0 F 61 18 89/61 92 06/11/18 06:48 06/11/18 06:48 06/11/18 09:33 06/11/18 06:48 06/11/18 09:33 - Patient Status Disposition: Home, Self-Care Overall status at discharge: patient is progressing back to baseline - Discharge Instructions Follow Up With: Nell Calvin, BEA [Primary Care Provider] - 1 week Forms: ED Satisfaction Letter, Work/School Release - Diet and Activity Activity: resume usual activities as tolerated Diet: advance to your usual diet
[2018-06-11] MEDS ORDERED: Cyanocobalamin (B-12) 1,000 MCG/ML VIAL IM ONE (10:53)
== END 2018-06-11 12:04 | disposition home or self-care (01) ==
LOC: EMEROOPIK 11:17 → INPPIK 11:17
PROVIDERS: ADMIT Internal Medicine; ATTEND Internal Medicine

== ENCOUNTER 2018-09-24 17:23 | Observation (INO) ==
[2018-09-24] MEDS ORDERED: Bumetanide 1 MG/4 ML VIAL IVP ONE (17:48)
[2018-09-24] MEDS ORDERED: Ampicillin/Sulbactam 3,000 MG in 0.9 % Sodium Chloride Mini Bag 100 ML IVPB ONE ×2 (17:49→19:57)
--- NOTE | 2018-09-24 18:01 | Emergency Department Note ---
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 breath difficulty breathing increasing swelling and edema to the legs with unknown amount of weight gain patient states he is unable to relate around the house without significant shortness of breath patient has a fever chills cough cold of flulike symptoms numbness tingling weakness other than just when he tries to get up and ambulate he denies any diarrhea melena hematochezia hematemesis rashes or lesions all systems have been reviewed and are otherwise negative Pt Subjective Complaint: shortness of breath Onset (ago): day(s) Context: other (Episodes to this in the past) Severity: severe Consistency/Duration: constant, gradually worsening Improves with: rest Worsens with: exertion, movement Known history of: congestive heart failure Associated symptoms: Reports: orthopnea. Denies: chest pain, pain with inspiration, fever, cough, wheezing, sputum production, lower extremity pain, polyuria, polydipsia, parasthesias, palpitations, hemoptysis, diaphoresis, nausea/vomiting, syncope, abdominal pain, rash, sense of impending doom Treatment prior to arrival: oxygen Cough present: No Sputum production: No - Related Data Home Medications Medication Instructions Recorded Confirmed Albuterol Sulfate [Proair Hfa] 2 puff IH Q4H PRN 07/03/16 06/08/18 Carbidopa/Levodopa 25/100 [Sinemet 2 each PO QID 07/03/16 06/08/18 25/100] Pramipexole [Mirapex] 0.5 mg PO TID 07/03/16 06/08/18 Tiotropium [Spiriva] 18 mcg IH QAM 07/03/16 06/08/18 Previous Rx's Medication Instructions Recorded Omeprazole [PriLOSEC] 20 mg PO DAILY PRN #0 02/20/18 Ascorbic Acid [Vitamin C] 500 mg PO DAILY #30 tablet.er 06/11/18 Cyanocobalamin (B-12) [Vitamin B12] 1,000 mcg PO DAILY #30 tablet 06/11/18 Ferrous Sulfate 325 mg PO DAILY #30 tablet 06/11/18 Allergies Allergy/AdvReac Type Severity Reaction Status Date / Time No Known Allergies Allergy Verified 09/24/18 17:27 All systems ED: reviewed and negative except as stated. Review of Systems: As Per HPI Constitutional: Reports: weakness. Denies: fever, chills Eyes: Denies: eye pain, eye discharge ENT ED: Denies: ear pain, throat pain Cardiovascular: Reports: dyspnea on exertion. Denies: chest pain, palpitations Respiratory: Denies: cough, dyspnea, wheezes Gastrointestinal: Denies: abdominal pain, nausea, vomiting Genitourinary: Denies: urgency, dysuria, frequency Musculoskeletal: Reports: other (lower extremity swelling). Denies: back pain, neck pain Integumentary: Denies: rash Neurological: Reports: weakness. Denies: headache Psychiatric: Denies: anxiety, depression Endocrine: Reports: fatigue Hematological/Lymphatic: Denies: easy bleeding Allergic/Immunologic: Denies: facial swelling Past Medical History - Past Medical History Attestation: Yes The following information was validated with the patient. Source: patient, old records reviewed, nursing notes reviewed Medical history: Reports: arthritis, cancer, cardiomyopathy, CHF, COPD, GERD, hypertension, osteoporosis, renal disease, other Surgical history: Reports: cancer surgery, other Psychiatric history: Reports: no psych history - Social History Smoking Status: Former smoker Smokeless Tobacco Status: No Alcohol use: Reports: none Drug use: Reports: none, other Physical Exam - General Limitations: physical limitation General appearance: alert, in no apparent distress, anxious, obese - Head Head exam: atraumatic, normocephalic, normal inspection - Eye Eye exam: Present: normal appearance, PERRL, EOMI - ENT ENT exam: normal exam, normal oropharynx, mucous membranes moist, TM's normal bilaterally, normal external ear exam - Neck Neck exam: Present: normal inspection, full ROM, trachea midline - Chest Chest inspection: Present: normal inspection, symmetric chest wall rise - Respiratory Respiratory exam: Present: normal lung sounds bilaterally, respiratory distress, other (Few crackles) - Cardiovascular Cardiovascular exam: Present: regular rate, normal rhythm, normal heart sounds - Abdominal Exam Abdominal exam: Present: soft, Non-Tender, normal bowel sounds, other (Obese abdomen unable to appreciate any masses). Absent: mass, pulsatile mass - Expanded Upper Extremity Exam Shoulder exam: Present: normal inspection, full ROM Arm exam: Present: normal inspection, full ROM Elbow exam: Present: normal inspection, full ROM Forearm/Wrist exam: Present: normal inspection, full ROM Hand exam: Present: normal inspection, full ROM Vascular exam: Normal: capillary refill, radial pulse - Expanded Lower Extremity Exam Hip/Pelvis exam: Present: normal inspection, full ROM Upper leg exam: Present: normal inspection, full ROM 1 - Significant bilateral lower extremity swelling with marked edema to the digits noted and discoloration to the digits Knee exam: Present: normal inspection, full ROM Lower leg exam: Present: normal inspection, full ROM, other (Barrie wrap on the right lower extremity that is wet and in areas from where he is been weeping on the leg marked edema of the lower extremities bilaterally) Ankle exam: Present: normal inspection, full ROM Foot/toe exam: Present: normal inspection, full ROM Neurovascular/Tendon exam: Present: other (Likely diminished sensation to the lower extremities but full range of motion ankle and hip but has trouble moving them secondary to the amount of edema). Absent: motor deficit, sensory deficit, tendon deficit Gait: other (Having trouble moving and ambulating secondary to significant amount of edema the lower extremities dyspnea with activity) - Back Exam Back exam: Present: normal inspection, full ROM. Absent: muscle spasm - Neurological Exam Neurological exam: Present: alert, oriented X3, CN II-XII intact - Psychiatric Psychiatric exam: Present: normal affect, normal mood - Skin Skin exam: Present: warm, dry, intact, normal color Course Course Narrative: Bilateral lower extremity swelling and edema and worsening as result the patient's family has brought him in. He has noticed and increasing shortness of breath with activity patient is here for evaluation unable to get in to the family physician states that his legs are hurting saw 1 spoke to him about admission patient is agreeable transferred to [facility] stable Vital Signs Temperature 98.5 F 09/24/18 17:28 Pulse Rate 70 09/24/18 17:28 Respiratory Rate 18 09/24/18 17:28 Blood Pressure 133/68 09/24/18 17:28 O2 Sat by Pulse Oximetry 80 09/24/18 17:28 Temperature 98.5 F 09/24/18 17:28 Pulse Rate 70 09/24/18 17:28 Respiratory Rate 18 09/24/18 17:28 Blood Pressure 133/68 09/24/18 17:28 O2 Sat by Pulse Oximetry 80 09/24/18 17:28 Oxygen Delivery Oxygen Delivery Room Air Shortness of Breath/Dyspnea - Differential Diagnosis Likely: acute exacerbation of chronic obstructive airways disease, congestive heart failure - Medical Records Medical records reviewed: Yes I reviewed the patient's medical records. - Lab Data Lab results reviewed: Yes I reviewed the patient's lab results. Result diagrams: 09/24/18 18:03 09/24/18 18:03 Lab Results 09/24/18 09/24/18 09/24/18 Range/Units 18:03 18:03 18:03 WBC 6.8 (4.3-11.1) K/mcL RBC 4.11 L (4.19-5.50) M/mcL Hgb 12.0 L (12.9-16.9) g/dL Hct 39.1 (37.5-50.1) % MCV 95.1 (83.0-100.0) fL MCH 29.2 (28.0-33.3) pg MCHC 30.7 L (31.6-35.5) g/dL RDW 14.8 H (11.5-14.5) % Plt Count 322 (140-400) K/mcL MPV 8.2 L (9.4-12.4) fL Immature Gran % 0.4 (0-4) % Seg Neutrophils % 63.2 % Lymphocytes % 22.3 % Monocytes % 8.3 % Eosinophils % 5.2 % Basophils % 0.6 % Neutrophils # 4.3 (1.6-8.9) K/mcL Lymphocytes # 1.5 (0.6-4.6) K/mcL Monocytes # 0.6 (0.0-1.3) K/mcL Eosinophils # 0.4 (0.0-0.6) K/mcL Basophils # 0.0 (0.0-0.2) K/mcL PT 11.3 (9.4-12.1) Seconds INR 1.0 APTT 33.9 (26.0-36.0) Seconds Sodium 140 (136-145) mEq/L Potassium 4.4 (3.5-5.1) mEq/L Chloride 99 (98-107) mEq/L Carbon Dioxide 35 H (23-29) mEq/L BUN 22 (8-23) mg/dL Creatinine 1.23 (0.70-1.30) mg/dL Est GFR ( Amer) > 60 (> 60) Est GFR (Non-Af Amer) 56 L (> 60) BUN/Creatinine Ratio 18 (6-26) Glucose 109 H (70-105) mg/dL Calculated Osmolality 294 (280-300) Calcium 9.2 (8.6-10.3) mg/dL Total Bilirubin 0.3 (0.3-1.0) mg/dL AST 12 L (13-39) Units/L ALT 3 L (7-52) Units/L Alkaline Phosphatase 59 (34-104) Units/L Troponin I < 0.03 (< 0.04) ng/mL B-Natriuretic Peptide (Less than 100) pg/mL Serum Total Protein 7.1 (6.4-8.9) g/dL Albumin 4.0 (3.5-5.7) g/dL Globulin 3.1 (2.4-3.5) g/dL Albumin/Globulin Ratio 1.3 (1.1-2.2) 09/24/18 Range/Units 18:03 WBC (4.3-11.1) K/mcL RBC (4.19-5.50) M/mcL Hgb (12.9-16.9) g/dL Hct (37.5-50.1) % MCV (83.0-100.0) fL MCH (28.0-33.3) pg MCHC (31.6-35.5) g/dL RDW (11.5-14.5) % Plt Count (140-400) K/mcL MPV (9.4-12.4) fL Immature Gran % (0-4) % Seg Neutrophils % % Lymphocytes % % Monocytes % % Eosinophils % % Basophils % % Neutrophils # (1.6-8.9) K/mcL Lymphocytes # (0.6-4.6) K/mcL Monocytes # (0.0-1.3) K/mcL Eosinophils # (0.0-0.6) K/mcL Basophils # (0.0-0.2) K/mcL PT (9.4-12.1) Seconds INR APTT (26.0-36.0) Seconds Sodium (136-145) mEq/L Potassium (3.5-5.1) mEq/L Chloride (98-107) mEq/L Carbon Dioxide (23-29) mEq/L BUN (8-23) mg/dL Creatinine (0.70-1.30) mg/dL Est GFR ( Amer) (> 60) Est GFR (Non-Af Amer) (> 60) BUN/Creatinine Ratio (6-26) Glucose (70-105) mg/dL Calculated Osmolality (280-300) Calcium (8.6-10.3) mg/dL Total Bilirubin (0.3-1.0) mg/dL AST (13-39) Units/L ALT (7-52) Units/L Alkaline Phosphatase (34-104) Units/L Troponin I (< 0.04) ng/mL B-Natriuretic Peptide 92 (Less than 100) pg/mL Serum Total Protein (6.4-8.9) g/dL Albumin (3.5-5.7) g/dL Globulin (2.4-3.5) g/dL Albumin/Globulin Ratio (1.1-2.2) - Radiology Data Radiology results reviewed: Yes I reviewed the patient's radiology results. ITS Impressions Chest X-Ray 09/24/18 17:48 IMPRESSION: 1. Enlarged cardiac silhouette and possible mild vascular congestion. No overt pulmonary edema. 2. COPD. D/ / Lance Alvarez MD / Lance Alvarez MD Interpreting Provider: Lance Alvarez MD - EKG Data EKG attestation: Yes I reviewed and interpreted this EKG. EKG results narrative: Sinus rhythm with SBC rate 70 ME 184 is 89 QT [address] segment elevation Critical Care Time Critical Care Time: No
[2018-09-24 18:09] LABS: Basophils % 0.6 %; Eosinophils # 0.4 K/mcL (0.0-0.6); Eosinophils % 5.2 %; Hematocrit 39.1 % (37.5-50.1); Immature Granulocytes % 0.4 % (0-4); Lymphocytes # 1.5 K/mcL (0.6-4.6); Lymphocytes % 22.3 %; Mean Corpuscular HGB Conc 30.7 g/dL (31.6-35.5); Mean Corpuscular Hemoglobin 29.2 pg (28.0-33.3); Mean Corpuscular Volume 95.1 fL (83.0-100.0); Mean Platelet Volume 8.2 fL (9.4-12.4); Monocytes # 0.6 K/mcL (0.0-1.3); Monocytes % 8.3 %; Neutrophils # 4.3 K/mcL (1.6-8.9); Platelet Count 322 K/mcL (140-400); Red Blood Count 4.11 M/mcL (4.19-5.50); Red Cell Distribution Width 14.8 % (11.5-14.5); Segmented Neutrophils % 63.2 %
[2018-09-24 18:19] LABS: Activated Partial Thrombo Time 33.9 Seconds (26.0-36.0); Prothrombin Time 11.3 Seconds (9.4-12.1)
[2018-09-24 18:27] LABS: Alanine Aminotransferase 3 Units/L (7-52); Albumin/Globulin Ratio 1.3 (1.1-2.2); Alkaline Phosphatase 59 Units/L (34-104); Aspartate Amino Transferase 12 Units/L (13-39); BUN/Creatinine Ratio 18 (6-26); Bilirubin,Total 0.3 mg/dL (0.3-1.0); Blood Urea Nitrogen 22 mg/dL (8-23); Calcium 9.2 mg/dL (8.6-10.3); Carbon Dioxide 35 mEq/L (23-29); Chloride 99 mEq/L (98-107); Globulin 3.1 g/dL (2.4-3.5); Glucose 109 mg/dL (70-105); Osmolality,Calculated 294 (280-300); Potassium 4.4 mEq/L (3.5-5.1); Sodium 140 mEq/L (136-145); Total Protein 7.1 g/dL (6.4-8.9); eGFR For Non-African Americans 56 (> 60)
[2018-09-24 18:28] LABS: Troponin I < 0.03 ng/mL (< 0.04)
[2018-09-24] MEDS ORDERED: Naloxone 0.4 MG/ML INJ IVP PRN (19:57)
[2018-09-24] MEDS: Carbidopa/Levodopa 25/100 TABLET PO SCH (21:49)
[2018-09-25] MEDS: Ampicillin/Sulbactam 3,000 MG in 0.9 % Sodium Chloride Mini Bag 100 ML IVPB SCH ×9 (02:08→19:47)
[2018-09-25 06:13] LABS: Basophils % 0.5 %; Eosinophils # 0.3 K/mcL (0.0-0.6); Eosinophils % 4.9 %; Hematocrit 37.9 % (37.5-50.1); Hemoglobin 11.5 g/dL (12.9-16.9); Immature Granulocytes % 0.3 % (0-4); Lymphocytes # 1.4 K/mcL (0.6-4.6); Lymphocytes % 20.6 %; Mean Corpuscular HGB Conc 30.3 g/dL (31.6-35.5); Mean Corpuscular Hemoglobin 28.6 pg (28.0-33.3); Mean Corpuscular Volume 94.3 fL (83.0-100.0); Mean Platelet Volume 8.6 fL (9.4-12.4); Monocytes # 0.6 K/mcL (0.0-1.3); Monocytes % 8.4 %; Neutrophils # 4.3 K/mcL (1.6-8.9); Platelet Count 328 K/mcL (140-400); Red Blood Count 4.02 M/mcL (4.19-5.50); Red Cell Distribution Width 14.6 % (11.5-14.5); Segmented Neutrophils % 65.3 %
[2018-09-25 06:30] LABS: BUN/Creatinine Ratio 19 (6-26); Blood Urea Nitrogen 22 mg/dL (8-23); Calcium 8.8 mg/dL (8.6-10.3); Carbon Dioxide 37 mEq/L (23-29); Chloride 98 mEq/L (98-107); Glucose 103 mg/dL (70-105); Osmolality,Calculated 294 (280-300); Sodium 140 mEq/L (136-145); eGFR For Non-African Americans 60 (> 60)
[2018-09-25] MEDS ORDERED: Bumetanide 1 MG/4 ML VIAL IVP SCH (07:00)
[2018-09-25] MEDS: Tiotropium 18 MCG inhalation IH SCH (08:51)
[2018-09-25] MEDS: Carbidopa/Levodopa 25/100 TABLET PO SCH ×4 (09:58→19:47)
[2018-09-25] MEDS: Cyanocobalamin (B-12) 1,000 MCG TABLET PO SCH (09:58)
[2018-09-25] MEDS: Ascorbic Acid 500 MG TABLET PO SCH (09:58)
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
--- NOTE | 2018-09-25 16:45 | Electrocardiograph Report ---
[address] [address] Test Date: 2018-09-24 Pat Name: [facility] Department: [id number] Room: [facility] Gender: M Virtual Assistant: [id number] : 1935 Requested By: Uzair Lynch Order Number: [id number] Reading MD: Mira Haas Measurements Intervals [place] Rate: 70 P: 94 [place]: 184 QRS: 29 QRSD: 89 T: 32 QT: 383 QTc: 403 Interpretive Statements SINUS RHYTHM WITH FREQUENT SUPRAVENTRICULAR PREMATURE COMPLEXES ABNORMAL RHYTHM ECG Electronically Signed On 09-25-2018 16:44:03 EST by Mira Haas
[2018-09-25] MEDS: Lactobacillus 1 EACH CAP.SPRINK PO SCH (19:47)
[2018-09-26] MEDS: Ampicillin/Sulbactam 3,000 MG in 0.9 % Sodium Chloride Mini Bag 100 ML IVPB SCH ×2 (02:38→08:10)
[2018-09-26 04:38] LABS: Basophils % 0.3 %; Eosinophils # 0.3 K/mcL (0.0-0.6); Eosinophils % 5.7 %; Hematocrit 37.8 % (37.5-50.1); Hemoglobin 11.7 g/dL (12.9-16.9); Immature Granulocytes % 0.2 % (0-4); Lymphocytes % 17.1 %; Mean Corpuscular Hemoglobin 29.5 pg (28.0-33.3); Mean Corpuscular Volume 95.5 fL (83.0-100.0); Mean Platelet Volume 8.2 fL (9.4-12.4); Monocytes # 0.5 K/mcL (0.0-1.3); Monocytes % 7.8 %; Neutrophils # 4.1 K/mcL (1.6-8.9); Platelet Count 284 K/mcL (140-400); Red Blood Count 3.96 M/mcL (4.19-5.50); Red Cell Distribution Width 14.7 % (11.5-14.5); Segmented Neutrophils % 68.9 %
[2018-09-26 06:45] VITALS: BP 127/70
[2018-09-26] MEDS: Cyanocobalamin (B-12) 1,000 MCG TABLET PO SCH (08:11)
[2018-09-26] MEDS: Lactobacillus 1 EACH CAP.SPRINK PO SCH (08:11)
[2018-09-26] MEDS: Carbidopa/Levodopa 25/100 TABLET PO SCH (08:12)
[2018-09-26] MEDS: Ascorbic Acid 500 MG TABLET PO SCH (08:12)
[2018-09-26] MEDS ORDERED: Bumetanide 1 MG TABLET PO SCH (09:00)
[2018-09-26 09:09] LABS: % Iron Saturation 10 % (20-55); Iron 34 mcg/dL (65-175); Transferrin 250 mg/dL (203-362)
[2018-09-26] MEDS: Tiotropium 18 MCG inhalation IH SCH (09:15)
[2018-09-26 09:27] LABS: Ferritin 27 ng/mL (20-250)
[2018-09-26 09:41] LABS: Folate 20.4 ng/mL (3.0-16.0)
[2018-09-26] MEDS ORDERED: Cyanocobalamin (B-12) 1,000 MCG/ML VIAL IM ONE (09:56)
--- NOTE | 2018-09-26 10:21 | Discharge Summary ---
Date of Encounter: 09/26/18 Time of Encounter: 09:50 - Discharge Diagnosis (1) Cellulitis Priority: Primary Status: Acute Qualifiers: Site of cellulitis: extremity Site of cellulitis of extremity: lower extremity Laterality: unspecified laterality Qualified Code(s): L03.119 - Cellulitis of unspecified part of limb (2) Acute kidney injury Priority: Secondary Status: Acute (3) Parkinsons disease Priority: Secondary Status: Chronic (4) Hypertension Priority: Secondary Status: Chronic Qualifiers: Hypertension type: essential hypertension Qualified Code(s): I10 - Essential (primary) hypertension (5) COPD (chronic obstructive pulmonary disease) with emphysema Priority: Secondary Status: Chronic Qualifiers: Emphysema type: unspecified Qualified Code(s): J43.9 - Emphysema, unspecified (6) Anemia Priority: Secondary Status: Acute Qualifiers: Anemia type: unspecified type Qualified Code(s): D64.9 - Anemia, unspecified Hospital course: Mr. Horn is a 83 year old male who came to emergency room stating he had increased dyspnea with leg edema and redness onset approximately one week earlier. He denies cough or chest pain. He was evaluated emergency room and felt to have leg cellulitis Rady was started on IV antibiotics and admitted to [facility] floor for ongoing care needs. Initial orders were written by the emergency room physician. I saw him on September 25 and performed a history and physical. He was started on ampicillin/sulbactam in emergency room. Lactobacillus was added. Bumex was also given. He had near complete resolution of erythema and edema by day of discharge. He will continue with antibiotic and probiotic for 2 additional days at discharge. Bumex will be continued at low dose. His PCP can monitor edema and labs as needed. Anemia testing showed iron 34, transferrin saturation 10%, transferrin 250, ferritin 27, B12 236, and folate 20.4. He was given a B12 injection IM prior to discharge. He will resume oral B12, ferrous sulfate, and ascorbic acid at discharge. His PCP can monitor labs. On September 26 he felt improved and stable for discharge home. He will follow with his PCP Nell Calvin CNP within 1 week. - Time Spent with Patient Total time spent providing and/or coordinating discharge services: - Discharge Medications Prescriptions: Amoxicillin/Clavulanate [Augmentin] 875 mg PO BIDWM #4 tablet Ascorbic Acid [Vitamin C] 500 mg PO DAILY #30 tablet.er Bumetanide 0.5 mg PO DAILY #30 tablet Cyanocobalamin (B-12) [Vitamin B12] 1,000 mcg PO DAILY #30 tablet Ferrous Sulfate 325 mg PO DAILY #30 tablet Lactobacillus [Culturelle] 1 each PO BID #4 cap.sprink Home Medications: Albuterol Sulfate [Proair Hfa] 2 puff IH Q4H PRN 07/03/16 [History] Carbidopa/Levodopa 25/100 [Sinemet 25/100] 2 each PO QID 07/03/16 [History] Pramipexole [Mirapex] 0.5 mg PO TID 07/03/16 [History] Tiotropium [Spiriva] 18 mcg IH QAM 07/03/16 [History] Omeprazole [PriLOSEC] 20 mg PO DAILY PRN #0 02/20/18 [Rx] Amoxicillin/Clavulanate [Augmentin] 875 mg PO BIDWM #4 tablet 09/26/18 [Rx] Ascorbic Acid [Vitamin C] 500 mg PO DAILY #30 tablet.er 09/26/18 [Rx] Bumetanide 0.5 mg PO DAILY #30 tablet 09/26/18 [Rx] Cyanocobalamin (B-12) [Vitamin B12] 1,000 mcg PO DAILY #30 tablet 09/26/18 [Rx] Ferrous Sulfate 325 mg PO DAILY #30 tablet 09/26/18 [Rx] Lactobacillus [Culturelle] 1 each PO BID #4 cap.sprink 09/26/18 [Rx] Allergies/Adverse Reactions: Allergy/AdvReac Type Severity Reaction Status Date / Time No Known Allergies Allergy Verified 09/24/18 17:27 Date of admission: 09/24/18 19:02 Primary care physician: Nell Calvin - Constitutional Vitals: Temp Pulse Resp BP Pulse Ox 98.3 F 60 18 127/70 91 09/26/18 06:44 09/26/18 06:44 09/26/18 09:16 09/26/18 06:44 09/26/18 09:16 - Patient Status Disposition: Home, Self-Care Condition: Fair - Discharge Instructions Follow Up With: Nell Calvin, [employer] [Primary Care Provider] - 1 week - Diet and Activity Activity: resume usual activities as tolerated, wear oxygen at all times Diet: advance to your usual diet
== END 2018-09-26 11:29 | disposition home or self-care (01) ==
LOC: EMEROOPIK 17:23 → INPPIK 17:23
PROVIDERS: ADMIT Internal Medicine; ATTEND Internal Medicine